=== PATIENT | female | born 1935 | race Caucasian/White ===

== ENCOUNTER 2016-11-30 20:19 | Observation (INO) | payer MEDICARE, MEDICAID ==
[2016-11-30] MEDS ORDERED: oxyCODONE/Acetamin 5/325 MG* TAB PO ONE (21:06)
[2016-11-30 22:05] LABS: Hematocrit 41 % (35-47); Hemoglobin 13.8 g/dl (12.0-16.0); Mean Corpuscular HGB Conc 34 g/dl (31-36); Mean Corpuscular Hemoglobin 29 pg (27-31); Mean Corpuscular Volume 86 fL (80-97); Mean Platelet Volume 10 um3 (7.4-10.4); Red Blood Count 4.78 10^6/ul (4.0-5.4); Red Cell Distribution Width 14 % (10.5-15); White Blood Count 9.8 10^3/ul (3.5-10.8)
[2016-11-30 22:21] LABS: Albumin 4.2 g/dL (3.2-5.2); BUN/Creatinine Ratio 15.9 (8-20); EGFR African American 63.1 (>60); EGFR Non-African American 49.1 (>60); Globulin 3.2 g/dL (2-4); Potassium 3.5 mmol/L (3.5-5.0); Total Bilirubin 0.4 mg/dL (0.2-1.0); Total Protein 7.4 g/dL (6.4-8.9)
[2016-11-30] MEDS ORDERED: Clindamycin 600 MG IVPREMIX(* 600 MG/50 ML SDV IV ONE (22:28)
[2016-11-30] MEDS ORDERED: NS 0.9% 250 ML* 250 ML IV ONE (22:28)
[2016-11-30] MEDS ORDERED: Morphine INJ* 2 MG/ML 1 ML CARPUJECT IV ONE (22:59)
--- NOTE | 2016-11-30 22:59 | HP ---
H&P (Free Text) History and Physical: PCP: Mark Shoemaker MD Date/Time of Evaluation: 11/30/2016 2310 CC: generalized weakness HPI: Mrs Gonzalez is an 81YO female reporting onset of a red 'bump' on her chin 2- 3 weeks ago which gradually enlarged becoming increasingly tender and erythematous with onset of F/C and sweats. She was seen by Felicia Bauer MD surgery Wednesday who lanced the R mental area, obtained a wound CX, and prescribed an ABX which she cannot recall. She has taken it as prescribed, but the area has not improved significantly and she has developed increasing fatigue and generalized weakness for which she presents. She also reports pain "in the jaw bone" with swallowing leading to poor PO intake. There is no pain in the neck proper, chest , abdomen, or other area. Bowels and bladder are normal. PMedHx HTN HLD hypothyroidism Allergies No Known Allergies Allergy (Verified 11/30/16 20:33) Ambulatory Orders Levothyroxine TAB* [Synthroid TAB*] 88 mcg PO 0800 11/30/16 Pravastatin Sodium [Pravachol] 20 mg PO DAILY 11/30/16 Triamterene/HCTZ 37.5-25 MG* [Dyazide CAP*] 1 cap PO DAILY 11/30/16 PSurgHx hysterectomy SocHx: no tobacco, alcohol, or recreational drugs; , lives alone; DNR/ trial of intubation code status FamHx: reviewed, non-contributory ROS: as above, otherwise reviewed and all were negative Constitutional: NAD, normally developed, well-nourished elderly white female vitals: Vital Signs Temp 36.8 C 12/01/16 01:58 Pulse 78 12/01/16 01:58 Resp 16 12/01/16 01:58 BP 149/71 12/01/16 01:58 Pulse Ox 95 12/01/16 01:58 Intake & Output 11/30/16 11/30/16 12/01/16 11:59 23:59 11:59 Intake Total 50 Balance 50 Weight 135 lb Intake: IV Fluids 50 HEENM: mental area with ~3cm erythematous, tender, warm indurated area with R sided I&D site without drainage; sclera/conjunctiva: non-icteric/clear; blephara : normal; hearing: clinically intact; oropharynx: clear, mucosa moist Neck: soft tissue: non-tender, no nuchal rigidity; thyroid: normal; no tracheal tenderness or crepitus Pulmonary: clear to auscultation bilaterally, good aeration, no accessory muscle use CV: RR/RR, normal S1S2, no carotid bruit, no jugular venous distention, 2+ B DP/ PT, no edema Abdominal: soft, non-distended, non-tender, no rebound/guarding/rigidity, normoactive bowel sounds, no hepatosplenomegaly or masses, no costovertebral angle tenderness Musculoskeletal: general: grossly intact; gait: stable Integumental: as above, otherwise normal appearance and texture Psychiatric orientation: AA&O to PPS affect: calm mood: cooperative eye contact: good content: reliable responses: slowed 2nd pain in jaw with speaking insight: good Testing: Lab Results 11/30/16 11/30/16 Range/Units 21:45 21:45 WBC 9.8 (3.5-10.8) 10^3/ul RBC 4.78 (4.0-5.4) 10^6/ul Hgb 13.8 (12.0-16.0) g/dl Hct 41 (35-47) % MCV 86 (80-97) fL MCH 29 (27-31) pg MCHC 34 (31-36) g/dl RDW 14 (10.5-15) % Plt Count 182 (150-450) 10^3/ul MPV 10 (7.4-10.4) um3 Neut % (Auto) 77.6 (38-83) % Lymph % (Auto) 9.8 L (25-47) % Newberry % (Auto) 12.3 H (1-9) % Eos % (Auto) 0.1 (0-6) % Baso % (Auto) 0.2 (0-2) % Absolute Neuts (auto) 7.6 (1.5-7.7) 10^3/ul Absolute Lymphs (auto) 1.0 (1.0-4.8) 10^3/ul Absolute Monos (auto) 1.2 H (0-0.8) 10^3/ul Absolute Eos (auto) 0 (0-0.6) 10^3/ul Absolute Basos (auto) 0 (0-0.2) 10^3/ul Absolute Nucleated RBC 0 10^3/ul Nucleated RBC % 0 Sodium 119 L* (133-145) mmol/L Potassium 3.5 (3.5-5.0) mmol/L Chloride 85 L (101-111) mmol/L Carbon Dioxide 25 (22-32) mmol/L Anion Gap 9 (2-11) mmol/L BUN 17 (6-24) mg/dL Creatinine 1.07 H (0.51-0.95) mg/dL Est GFR ( Amer) 63.1 (>60) Est GFR (Non-Af Amer) 49.1 (>60) BUN/Creatinine Ratio 15.9 (8-20) Glucose 114 H (70-100) mg/dL Calcium 11.0 H (8.6-10.3) mg/dL Total Bilirubin 0.40 (0.2-1.0) mg/dL AST 18 (13-39) U/L ALT 10 (7-52) U/L Alkaline Phosphatase 67 (34-104) U/L Total Protein 7.4 (6.4-8.9) g/dL Albumin 4.2 (3.2-5.2) g/dL Globulin 3.2 (2-4) g/dL Albumin/Globulin Ratio 1.3 (1-3) Impression: 81F presenting with mental cellulitis found to have hypoNatremia DIAGNOSIS & PLAN Primary hypoNatremia : suspect dehydration & HCTZ effect in setting of poor PO intake and ongoing thiazide use : D/C triamtereneHCTZ : IV normal saline : trend mental cellulitis : wound CX from 11/27/2016 no growth, final : PO sulfamethoxazole/trimethoprim DS BID : PO amoxicillin 875mg BID : monitor Secondary HTN : D/C triamterene HCTZ : add lisinopril 5mg PO daily : monitor HLD : continue pravastatin hypothyroidism : continue levothyroxine Admission Rational: observation for hypoNatremia DVTp: heparin SQ Code Status: DNR/trial of intubation HCP: daughter
[2016-11-30] MEDS ORDERED: Ondansetron INJ* 2 MG/ML VIAL IV ONE (23:00)
[2016-11-30] MEDS ORDERED: NS 0.9% 1000 ML* 1,000 ML IV SCH (23:15)
--- NOTE | 2016-12-01 00:44 | ED ---
Sam Huang Adam, scribed for Rudy Allen on 11/30/16 at 2102 . Skin Complaint - HPI Summary HPI Summary: Pt is an 81 year old female presenting with swelling on her chin that set on 2 weeks ago. 3 days ago she started abx and 2 days ago her PCP lanced the chin. She came to the ED tonight because the swelling has increased since she saw her PCP and she also c/o pain in the chin. Pt also reports insomnia and intermittent fever. She denies any CP or SOB. Negative Hx of DM. No tobacco/ alcohol use. - History of Current Complaint Chief Complaint: EDRashSkinAbscess Time Seen by Provider: 11/30/16 20:54 Stated Complaint: MOUTH PAIN Hx Obtained From: Patient Onset/Duration: Started Weeks Ago, Atraumatic, Still Present, Worse Since - Last 2 days Timing: Constant Onset Severity: Mild Current Severity: Moderate Pain Intensity: 10 Pain Scale Used: 0-10 Numeric Skin Location: Face - Chin Character: Swelling, Pain, Redness Aggravating Symptom(s): Nothing Alleviating Symptom(s): Nothing Associated Signs & Symptoms: Fever - Allergy/Home Medications Allergies/Adverse Reactions: Allergies Allergy/AdvReac Type Severity Reaction Status Date / Time No Known Allergies Allergy Verified 11/30/16 20:33 PMH/Surg Hx/FS Hx/Imm Hx Infectious Disease History: No Infectious Disease History: Denies: Traveled Outside the US in Last 30 Days - Family History Known Family History: Positive: None - Reviewed and noncontributory - Social History Occupation: Unemployed Lives: Alone Alcohol Use: None Hx Substance Use: No Substance Use Type: Reports: None Hx Tobacco Use: No Smoking Status (MU): Never Smoked Tobacco Review of Systems Positive: Fever, Fatigue - Insomnia Positive: Myalgia - Chin, Edema - Chin Positive: Other - Redness over chin All Other Systems Reviewed And Are Negative: Yes Physical Exam Triage Information Reviewed: Yes Vital Signs On Initial Exam: Initial Vitals Temp Pulse Resp BP Pulse Ox 97.4 F 98 18 154/75 99 11/30/16 20:31 11/30/16 20:31 11/30/16 20:31 11/30/16 20:31 11/30/16 20:31 Vital Signs Reviewed: Yes Appearance: Positive: Well-Appearing, No Pain Distress Skin: Positive: Warm, Skin Color Reflects Adequate Perfusion, Dry Head/Face: Positive: Other - Swelling and redness over chin. No fluctuance, mild tenderness. Incision wound present on the right aspect of the chin. No discharge. Eyes: Positive: EOMI, ALMA ENT: Positive: Normal ENT inspection Neck: Positive: Supple, Nontender Respiratory/Lung Sounds: Positive: Clear to Auscultation, Breath Sounds Present Cardiovascular: Positive: RRR, Pulses are Symmetrical in both Upper and Lower Extremities Abdomen Description: Positive: Nontender, Soft Bowel Sounds: Positive: Present Musculoskeletal: Positive: Normal, Strength/ROM Intact Neurological: Positive: Normal, Sensory/Motor Intact, Alert, Oriented to Person Place, Time Diagnostics - Vital Signs Vital Signs Temp Pulse Resp BP Pulse Ox 11/30/16 20:31 97.4 F 98 18 154/75 99 - Laboratory Result Diagrams: 11/30/16 21:45 11/30/16 21:45 Lab Statement: Any lab studies that have been ordered have been reviewed, and results considered in the medical decision making process. - Additional Comments Diagnostic Additional Comments: Sodium - 119 Course/Dx - Diagnoses Provider Diagnoses: Cellulitis of the chin, Hyponatremia - Physician Notifications Discussed Care Of Patient With: Dr. Allen at 22:40. He accepts admission of the patient. Discharge - Discharge Plan Condition: Stable Disposition: ADMITTED TO [facility] Referrals: Stephanie Shoemaker MD [Primary Care Provider] - The documentation as recorded by the Sam rees Adam accurately reflects the service I personally performed and the decisions made by me, Rudy Allen.
[2016-12-01] MEDS ORDERED: Acetaminophen TAB* 325 MG PO PRN (03:57)
[2016-12-01] MEDS ORDERED: Morphine INJ* 2 MG/ML 1 ML CARPUJECT IV PRN (04:08)
[2016-12-01] MEDS ORDERED: NS 0.9% 1000 ML* 1,000 ML IV SCH (04:15)
[2016-12-01] MEDS: Levothyroxine TAB* 88 MCG TAB PO SCH (05:54)
[2016-12-01] MEDS ORDERED: Lidocaine 2% VISCOUS* 15 ML UDC SWISH SWAL PRN (05:56)
[2016-12-01] MEDS: Ondansetron INJ* 2 MG/ML VIAL IV PRN ×2 (06:20→12:42)
[2016-12-01 06:58] LABS: BUN/Creatinine Ratio 15.7 (8-20); Calcium 10.1 mg/dL (8.6-10.3); EGFR African American 78.1 (>60); EGFR Non-African American 60.7 (>60); Potassium 3.7 mmol/L (3.5-5.0)
[2016-12-01] MEDS: NS 0.9% 1000 ML* 1,000 ML IV SCH ×2 (09:35→20:18)
[2016-12-01] MEDS: Atorvastatin* 10 MG TAB PO SCH (09:37)
[2016-12-01] MEDS: Sulfamethox/Trimethoprim DS 800/160* TAB PO SCH ×2 (09:37→20:22)
[2016-12-01] MEDS: Pantoprazole IV* 40 MG IV SCH (09:37)
[2016-12-01] MEDS: Lisinopril TAB* 5 MG PO SCH (09:37)
[2016-12-01] MEDS: Amoxicillin PO (*) 875 MG TAB PO SCH ×2 (09:37→20:21)
--- NOTE | 2016-12-01 12:58 | PN ---
Subjective Date of Service: 12/01/16 Interval History: Seen with daughter at bedside Feels energy level improved No pain over chin but notes pain in b/l TMJs Objective Active Medications: Acetaminophen (Tylenol Tab*) 650 mg PO Q6H PRN PRN Reason: FEVER/PAIN Amoxicillin (Amoxicillin (*)) 875 mg PO BID [facility] Last Admin: 12/01/16 09:37 Dose: 875 mg Atorvastatin Calcium (Lipitor*) 5 mg PO DAILY [facility] PRN Reason: Protocol Last Admin: 12/01/16 09:37 Dose: 5 mg Sodium Chloride (Ns 0.9% 1000 Ml*) 1,000 mls @ 100 mls/hr IV PER RATE [facility] Last Admin: 12/01/16 09:35 Dose: 100 mls/hr Levothyroxine Sodium (Synthroid Tab*) 88 mcg PO 0600 [facility] Last Admin: 12/01/16 05:54 Dose: 88 mcg Lidocaine (Xylocaine 2% Viscous*) 15 ml SWISH SWAL TID PRN PRN Reason: SORE THROAT Last Admin: 12/01/16 09:38 Dose: 15 ml Lisinopril (Prinivil Tab*) 5 mg PO DAILY [facility] Last Admin: 12/01/16 09:37 Dose: 5 mg Morphine Sulfate (Morphine Inj (Syringe)*) 2 mg IV Q4H PRN PRN Reason: PAIN - MILD Last Admin: 12/01/16 05:54 Dose: 2 mg Ondansetron HCl (Zofran Inj*) 4 mg IV Q6H PRN PRN Reason: NAUSEA Last Admin: 12/01/16 12:42 Dose: 4 mg Pantoprazole Sodium (Protonix Iv*) 40 mg IV DAILY [facility] Last Admin: 12/01/16 09:37 Dose: 40 mg Trimethoprim/Sulfamethoxazole (Bactrim Ds 800/160 Tab*) 1 tab PO BID [facility] Last Admin: 12/01/16 09:37 Dose: 1 tab Vital Signs 12/01/16 12/01/16 12/01/16 05:45 05:54 06:34 Temperature 98.4 F Pulse Rate 80 Respiratory 16 14 16 Rate Blood Pressure 162/70 (mmHg) O2 Sat by Pulse 95 Oximetry 12/01/16 12/01/16 12/01/16 06:54 07:35 11:52 Temperature 98.1 F 98.3 F Pulse Rate 76 74 Respiratory 16 18 18 Rate Blood Pressure 140/65 141/58 (mmHg) O2 Sat by Pulse 95 97 Oximetry Oxygen Devices in Use Now: None Appearance: NAD Eyes: No Scleral Icterus, PERRLA Ears/Nose/Mouth/Throat: NL Teeth, Lips, Gums, Clear Oropharnyx, Mucous Membranes Moist, - - pain in TMJ b/l Neck: NL Appearance and Movements; NL JVP, Trachea Midline Respiratory: Symmetrical Chest Expansion and Respiratory Effort, Clear to Auscultation Cardiovascular: RRR Abdominal: NL Sounds; No Tenderness; No Distention, No Hepatosplenomegaly Lymphatic: No Cervical Adenopathy Extremities: No Edema, No Clubbing, Cyanosis Skin: - - mild erythema over chin with area of I&D c/d/i Neurological: Alert and Oriented x 3 Result Diagrams: 11/30/16 21:45 12/01/16 06:00 Assess/Plan/Problems-Billing Assessment: 81 yo F admitted with fatigue in setting of cellulitis and hyponatremia - Patient Problems (1) Hyponatremia Comment: c/w normal saline 100cc/hr hold aldactone and HCTZ (2) Cellulitis Comment: c/w bactrim and amox (3) Hypertension Comment: lisinopril (4) DVT prophylaxis Comment: HSQ
[2016-12-01] MEDS: Heparin VIAL(*) 5000 UNITS/ML VIAL (FIVE THOUSAND) SUBCUT SCH ×2 (15:31→20:23)
[2016-12-02 05:17] LABS: Hematocrit 34 % (35-47); Hemoglobin 11.3 g/dl (12.0-16.0); Mean Corpuscular HGB Conc 34 g/dl (31-36); Mean Corpuscular Hemoglobin 29 pg (27-31); Mean Corpuscular Volume 86 fL (80-97); Mean Platelet Volume 10 um3 (7.4-10.4); Red Blood Count 3.92 10^6/ul (4.0-5.4); Red Cell Distribution Width 14 % (10.5-15); White Blood Count 7.5 10^3/ul (3.5-10.8)
[2016-12-02] MEDS: Levothyroxine TAB* 88 MCG TAB PO SCH (05:21)
[2016-12-02] MEDS: Heparin VIAL(*) 5000 UNITS/ML VIAL (FIVE THOUSAND) SUBCUT SCH ×2 (05:23→14:01)
[2016-12-02 05:31] LABS: BUN/Creatinine Ratio 13.5 (8-20); Calcium 9.4 mg/dL (8.6-10.3); EGFR African American 96.6 (>60); EGFR Non-African American 75.1 (>60); Potassium 3.4 mmol/L (3.5-5.0)
[2016-12-02] MEDS: NS 0.9% 1000 ML* 1,000 ML IV SCH (07:20)
[2016-12-02] MEDS: Amoxicillin PO (*) 875 MG TAB PO SCH (08:29)
[2016-12-02] MEDS: Lisinopril TAB* 5 MG PO SCH (08:30)
[2016-12-02] MEDS: Pantoprazole IV* 40 MG IV SCH (08:30)
[2016-12-02] MEDS: Sulfamethox/Trimethoprim DS 800/160* TAB PO SCH (08:30)
[2016-12-02] MEDS: Atorvastatin* 10 MG TAB PO SCH (08:30)
[2016-12-02] MEDS ORDERED: Iohexol 300* (CONTRAST) 10 ML SDV IV ONE (10:51)
--- NOTE | 2016-12-02 12:17 | RAD ---
HISTORY: Squamous cell carcinoma COMPARISONS: None TECHNIQUE: Multiple contiguous axial CT scans were obtained of the chest, abdomen, and pelvis after the administration of intravenous contrast. Coronal and sagittal multiplanar reformations are submitted for review.. FINDINGS: CHEST NECK AND THYROID: The lower neck and thyroid are unremarkable. CHEST WALL: There is no lower cervical, axillary, or supraclavicular lymphadenopathy by size criteria. There are subcentimeter short axis axillary lymph nodes bilaterally. HEART AND PERICARDIUM: The heart is unremarkable. AORTA AND PULMONARY VASCULATURE: The aorta and pulmonary vasculature are normal. MEDIASTINUM: There is no mediastinal lymphadenopathy by size criteria. There are calcified mediastinal lymph nodes. HENRY: There is no hilar lymphadenopathy by size criteria. AIRWAY AND ESOPHAGUS: The airway is unremarkable, without endobronchial filling defect. The esophagus is grossly normal. LUNG PARENCHYMA: There is a calcified granuloma of the left upper lobe. There is a 0.4 cm nodule of the right upper lobe on axial image 24. PLEURA: No pleural abnormalities are noted. BONES AND SOFT TISSUES: There is diffuse osteopenia. Mild degenerative changes are noted ABDOMEN/PELVIS: LIVER: The liver is normal in shape, size, contour, and attenuation. BILE DUCTS: There is ectasia of the common duct. There is no intrahepatic biliary dilatation. GALLBLADDER: The gallbladder is normal, without pericholecystic inflammatory change. PANCREAS: The pancreas is normal, without mass or ductal dilatation. SPLEEN: Calcified splenic granulomas are noted. UPPER GI TRACT: Evaluation of the gastrointestinal tract is limited by incomplete gastric distention. The upper GI tract is unremarkable. SMALL BOWEL \T\ MESENTERY: The small bowel is normal in contour, course, and caliber. There is no obstruction or dilatation. COLON: There are multiple diverticula of the distal colon. There is no pericolonic inflammatory change. ADRENALS: Normal bilaterally. KIDNEYS: The kidneys are normal in shape, size, contour, and axis. There is no hydronephrosis or nephrolithiasis. BLADDER: The bladder is smooth in contour. PELVIC ORGANS: The pelvic organs are not visualized. AORTA: There is calcific atherosclerotic disease of the abdominal aorta and its branches, without aneurysmal dilatation IVC: Unremarkable LYMPH NODES: There is no lymphadenopathy by size criteria. ABDOMINAL WALL: There is no evidence for abdominal wall hernia. BONES: Degenerative changes are noted of the spine. There is grade 1 anterolisthesis of L4 on L5 OTHER: None IMPRESSION: 1. 0.4 CM NODULE OF THE RIGHT UPPER LOBE. GIVEN THE HISTORY OF MALIGNANCY, METASTATIC DISEASE IS WITHIN THE DIFFERENTIAL. RECOMMEND ATTENTION ON FOLLOW-UP IMAGING. 2. DIVERTICULOSIS. 3. ATHEROSCLEROSIS. 4. EVIDENCE OF EXPOSURE TO GRANULOMATOUS DISEASE.
--- NOTE | 2016-12-02 12:42 | RAD ---
HISTORY: New diagnosis of squamous cell carcinoma COMPARISONS: None TECHNIQUE: Multiple contiguous axial CT scans were obtained of the head with and without intravenous contrast. FINDINGS: HEMORRHAGE/INFARCT: There is no hemorrhage or acute infarct. MASSES/SHIFT: There is no mass or shift. EXTRA-AXIAL SPACES: There are no extra-axial fluid collections. SULCI AND VENTRICLES: The sulci and ventricles are normal in size and position for the patient's stated age. CEREBRUM: There are no focal parenchymal abnormalities. BRAINSTEM: There are no focal parenchymal abnormalities. CEREBELLUM: There are no focal parenchymal abnormalities. VESSELS: The vessels are grossly normal. PARANASAL SINUSES: The paranasal sinuses are clear. ORBITS: The orbits are unremarkable. BONES AND SOFT TISSUE: No bone or soft tissue abnormalities are noted. OTHER: There is no abnormal enhancement IMPRESSION: NO ACUTE INTRACRANIAL PATHOLOGY. NO ABNORMAL ENHANCEMENT.
[2016-12-02 12:56] VITALS: BP 135/57
--- NOTE | 2016-12-02 19:40 | CONS ---
CONSULTATION REPORT: DATE OF CONSULTATION: 12/02/16 I was at [facility] and they presented Alyssia Gonzalez who had a mass on her chin that was initially thought to be an abscess Two biopsies were taken and it turned out to be squamous cell carcinoma. I examined her and she has got a firm mass involving the anterior symphysis of her mandible. There was no intraoral lesion but it does appear to be wrapping around the mandible and invading skin. I believe that the primary is squamous cell carcinoma, for some reason arising from the mandible, possibly from a tooth root. She will require mandibulectomy and will be referring her for that to [facility]. I will see her in the office after she is discharged. [id number]/[facility] #: [id number] ALISON
--- NOTE | 2016-12-03 01:31 | DS ---
DISCHARGE SUMMARY: DATE OF ADMISSION: 11/30/16 DATE OF DISCHARGE: 12/02/16 PRIMARY CARE PROVIDER: Dr. Shoemaker. ONCOLOGIST: Dr. Maravilla. ENT DOCTOR: Dr. Figueroa. 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 2. Hyponatremia. SECONDARY DIAGNOSES: 1. A 0.4 cm lung nodule. 2. Hypertension. 3. Hyperlipidemia. 4. Hypothyroidism. MEDICATIONS ON DISCHARGE: Include: 1. Pravastatin 20 mg daily. 2. Levothyroxine 88 mcg daily. 3. Lisinopril 5 mg daily. Please note the discontinuation of hydrochlorothiazide. IMAGING PERFORMED DURING HOSPITAL STAY: CT of abdomen and pelvis, impression: A 0.4 cm nodule of the right upper lobe. Given the history of malignancy, metastatic disease within differential. Diverticulosis, atherosclerosis, evidence of exposure to granulomatous disease. Brain CT, impression: No acute endocranial pathology. No abnormal enhancement. PERTINENT LABORATORY DATA: Sodium on presentation 119 and on discharge 126. HISTORY OF PRESENT ILLNESS AND HOSPITAL COURSE: This is a louise 81-year-old female who developed "red bump" on her chin 2 to 3 weeks ago that became gradually enlarged. She presented to Dr. Bauer where he performed an I and D without return of pus. Given its peculiar appearance, he also took a small biopsy and sent for pathology. The patient presented to the hospital feeling more fatigued. She was found with hyponatremia and continued abnormality of skin over chin. She was being treated for a cellulitis, which we continued in the hospital; however, pathology from biopsy taken by Dr. Bauer returned while she was here, positive for well- differentiated invasive squamous cell carcinoma. Case presented at [facility] on the day of discharge. She was seen by Dr. Figueroa in the hospital who will follow her and arrange a followup this coming week. He indicates that he would likely refer her to [place] for further care. She also received a CT of head, chest, abdomen and pelvis after discussion with Oncology, which was ____notable__ for a 0.4 cm nodule. It is thought that this may be unrelated; however, certainly can represent primary or metastatic disease in the setting of known invasive squamous cell carcinoma of the chin. She will be discharged with followup for Dr. Shoemaker, and Dr. Figueroa is arranging followup with his office on Wednesday or Wednesday. She is left with Dr. Maravilla's information to follow up after surgery , likely to be at [place]. Her sodium improved with the administration of normal saline. The hydrochlorothiazide was discontinued. It was thought that she had hypovolemic hyponatremia. At followup please; 1. Ensure the patient follows with Dr. Figueroa as indicated above. 2. Please check blood pressure and change in medication. Hydrochlorothiazide was discontinued. Lisinopril was continued. 3. Consider rechecking BMP in future for continued sodium resolution. 4. No other specific labs or vital signs that need followup. Reasons to return to the hospital including, but are not limited to recurrent or worsening symptoms, chest pain, shortness of breath, nausea, vomiting, headaches, changes in vision, bleeding from any source, diarrhea, fevers, chills , night sweats, inability to obtain or tolerate medications were discussed with the patient and her daughter. They acknowledged understanding. TIME SPENT: Greater than 45 minutes was spent on discharge of this patient with greater than half the time spent [id number] with the patient. CC: Dr. Shoemaker; Dr. Maravilla; Dr. Figueroa * [id number]/[facility] #: [id number] [facility]
== END 2016-12-02 14:49 | disposition home or self-care (01) ==
LOC: ED 20:19 → MEDTELE 12-01 03:54
PROVIDERS: ADMIT Hospitalist; ATTEND Internal Medicine
DX: C44.329 Squamous cell carcinoma of skin of other parts of face (principal); R91.1 Solitary pulmonary nodule; I10 Essential (primary) hypertension; E78.5 Hyperlipidemia, unspecified; E03.9 Hypothyroidism, unspecified; E87.1 Hypo-osmolality and hyponatremia
CPT/HCPCS: 36415; 70470; 71260; 74177; 80048; 80053; 85025; 87040; 96365; 96375; 99284; A9270-GY; G0378; J1644; J2270; J2405; Q9967

== ENCOUNTER 2016-12-06 04:01 | Emergency (ER) | payer MEDICARE, MEDICAID ==
[2016-12-06 04:10] VITALS: BP 186/86
[2016-12-06] MEDS ORDERED: Morphine INJ* 4 MG/ML 1 ML CARPUJECT SUBCUT ONE (04:23)
--- NOTE | 2016-12-06 04:37 | ED ---
Nithin Huang Janilya, scribed for Gregorio Jimenez MD on 12/06/16 at 0427 . Skin Complaint - HPI Summary HPI Summary: An 81 y/o female came in to [facility] c/o a sudden onset of constant chin pain that awoke her last night. Pt says she's had the abscess and the swelling on her chin "for a while". however, the reason she came to the ED today was because it woke her up from her sleep. Pt had bx and was recently dx with squamous cell ca of chin, to be followed in [place], pt has not made appointment for f/u yet. It usually does not. She takes Tylenol for the pain, which pt reports at times effective, and at other times, unhelpful. - History of Current Complaint Chief Complaint: EDHeadache Time Seen by Provider: 12/06/16 04:21 Stated Complaint: JAW PAIN Hx Obtained From: Patient Onset/Duration: Started Days Ago, Atraumatic, Still Present Timing: Constant Onset Severity: Moderate Current Severity: Moderate Pain Intensity: 8 Pain Scale Used: 0-10 Numeric Skin Location: Other: - Chin Aggravating Symptom(s): Nothing Alleviating Symptom(s): OTC Meds Associated Signs & Symptoms: Negative - Additional Pertinent History Primary Care Physician: [id number] - Allergy/Home Medications Allergies/Adverse Reactions: Allergies Allergy/AdvReac Type Severity Reaction Status Date / Time No Known Allergies Allergy Verified 11/30/16 20:33 PMH/Surg Hx/FS Hx/Imm Hx Previously Healthy: Yes Sensory History: Reports: Hx Contacts or Glasses Opthamlomology History: Reports: Hx Contacts or Glasses - Surgical History Surgery Procedure, Year, and Place: hysterectomy - in the 70s Hx Anesthesia Reactions: No Infectious Disease History: No Infectious Disease History: Denies: Traveled Outside the [place] in Last 30 Days - Family History Known Family History: Positive: None - Reviewed and noncontributory - Social History Occupation: Retired Alcohol Use: None Hx Substance Use: No Substance Use Type: Reports: None Hx Tobacco Use: No Smoking Status (MU): Never Smoked Tobacco Review of Systems Negative: Fever Skin: Other - abscess, erythema, swelling, and pain of chin All Other Systems Reviewed And Are Negative: Yes Physical Exam Triage Information Reviewed: Yes Vital Signs On Initial Exam: Initial Vitals Temp Pulse Resp BP Pulse Ox 97.9 F 85 18 186/86 95 12/06/16 04:03 12/06/16 04:03 12/06/16 04:03 12/06/16 04:03 12/06/16 04:03 Vital Signs Reviewed: Yes Appearance: Positive: Well-Appearing, Pain Distress - mild discomfort Skin: Positive: Warm Head/Face: Positive: Other - mild erythema, swollen, tender chin, no fluctuance ENT: Positive: Hearing grossly normal Neck: Positive: Supple Respiratory/Lung Sounds: Positive: Breath Sounds Present Musculoskeletal: Positive: Strength/ROM Intact Neurological: Positive: Normal Gait Diagnostics - Vital Signs Vital Signs Temp Pulse Resp BP Pulse Ox 12/06/16 04:03 97.9 F 85 18 186/86 95 - Laboratory Lab Statement: Any lab studies that have been ordered have been reviewed, and results considered in the medical decision making process. Re-Evaluation - Re-Evaluation First Eval Re-Evaluation Time: 05:00 Change: Improved - explained to pt need to f/u for ca, to call pcp for further rx for pain, advised to take ibuprofen for same Course/Dx - Diagnoses Provider Diagnoses: Jaw pain Discharge - Discharge Plan Condition: Improved Disposition: HOME Referrals: Stephanie Shoemaker MD [Primary Care Provider] - Additional Instructions: Follow up with your primary care provider. The documentation as recorded by the Nithin rees Janilya accurately reflects the service I personally performed and the decisions made by me, Gregorio Jimenez MD.
[2016-12-06] MEDS ORDERED: traMADol TAB* 50 MG PO ONE ×2 (05:01→06:00)
== END 2016-12-06 06:43 | disposition home or self-care (01) ==
LOC: ED 04:01
DX: R68.84 Jaw pain (principal)
CPT/HCPCS: 96374; 99282; A9270-GY; J2270

== ENCOUNTER 2017-01-20 18:48 | Emergency (ER) | payer MEDICARE, MEDICAID ==
[2017-01-20] MEDS ORDERED: NS 0.9% 1000 ML* 1,000 ML IV SCH (19:45)
--- NOTE | 2017-01-20 20:07 | RAD ---
INDICATION: Chills. COMPARISON: Comparison is made with a prior chest x-ray study from November 03, 2006. TECHNIQUE: A portable view of the chest was obtained. FINDINGS: Cardiac and mediastinal contours appear to be within normal limits. There is a nasogastric tube which demonstrates normal course. The catheter tip projects below the left hemidiaphragm off the film. There is an infiltrate at the right lung base and a small right pleural effusion. The left lung appears clear. IMPRESSION: RIGHT BASILAR INFILTRATE AND SMALL PLEURAL EFFUSION.
[2017-01-20 20:19] LABS: Hematocrit 29 % (35-47); Hemoglobin 9.6 g/dl (12.0-16.0); Mean Corpuscular HGB Conc 33 g/dl (31-36); Mean Corpuscular Hemoglobin 28 pg (27-31); Mean Corpuscular Volume 86 fL (80-97); Mean Platelet Volume 9 um3 (7.4-10.4); Red Blood Count 3.41 10^6/ul (4.0-5.4); Red Cell Distribution Width 15 % (10.5-15); White Blood Count 17.2 10^3/ul (3.5-10.8)
[2017-01-20 20:36] LABS: Albumin 3.1 g/dL (3.2-5.2); BUN/Creatinine Ratio 36.4 (8-20); C Reactive Protein 32.99 mg/L (< 5.00); EGFR African American 136.1 (>60); EGFR Non-African American 105.8 (>60); Globulin 3.5 g/dL (2-4); Potassium 3.3 mmol/L (3.5-5.0); Total Bilirubin 0.5 mg/dL (0.2-1.0); Total Protein 6.6 g/dL (6.4-8.9)
[2017-01-20] MEDS ORDERED: Iohexol 300* (CONTRAST) 10 ML SDV IV ONE (20:41)
[2017-01-20] MEDS ORDERED: Levofloxacin 750 MG IVPREMIX(* 750 MG/150 ML BAG IVPB ONE (21:07)
[2017-01-20] MEDS ORDERED: cefTRIAXone(*) 1 GM in NS 0.9% 50 ML* 50 ML IVPB ONE (21:07)
--- NOTE | 2017-01-20 21:26 | RAD ---
INDICATION: Status post mandible surgery January 06, 2017, drainage at the surgical site and chills. COMPARISON: Comparison is made with a prior PET/CT study from December 31, 2016. TECHNIQUE: A CT scan of the neck was performed with intravenous contrast following intravenous injection of 50 ml of Omnipaque 300 nonionic contrast. Contiguous axial sections were obtained from the skull base through the lung apices. Images were reconstructed in the coronal and sagittal planes. FINDINGS: The patient is status post resection of a mass in the mandibular symphysis. There is bone graft material present replacing the horizontal rami and mandibular symphysis transfixed with multiple surgical plates and screws. No osseous fusion is present. There is diffuse soft tissue swelling inferior to the surgical site extending into the anterior neck. There is a fluid collection present along the inferior aspect of the surgical site in the midline which extends laterally toward the right side. This measures approximately 8.0 x 2.4 x 1.4 cm in size. There are also small bubbles of air within the collection. No wall enhancement is noted. The airway appears patent. The epiglottis and area epiglottic folds appear within normal limits. The retropharyngeal soft tissues appear to be within normal limits. There is a stoma present connecting to the anterior aspect of the trachea at the thoracic inlet. No significant enlarged nodes are seen. The parotid glands appear within normal limits. The submandibular glands are not well-defined. The thyroid gland appears mildly prominent with adjacent postsurgical changes and otherwise unremarkable. The lung apices appear clear. There is a right pleural effusion which is partially visualized on this exam. The visualized portion of the paranasal sinuses and mastoid air cells appear clear. IMPRESSION: 1. POST SURGICAL CHANGES IN THE MANDIBLE DESCRIBED. INFERIOR TO THE SURGICAL SITE THERE IS A RELATIVELY PROMINENT AIR-FLUID COLLECTION MOST CONSISTENT WITH A POSTOPERATIVE SEROMA OR AN ABSCESS. 2. RIGHT PLEURAL EFFUSION, RECOMMEND CHEST X-RAY CORRELATION.
[2017-01-20 22:38] LABS: Urine Bilirubin Negative (Negative); Urine Glucose Negative (Negative); Urine Nitrite Negative (Negative)
[2017-01-20] MEDS ORDERED: Ondansetron INJ* 2 MG/ML VIAL IV ONE (23:35)
[2017-01-20] MEDS ORDERED: Morphine INJ* 4 MG/ML 1 ML CARPUJECT IV ONE (23:35)
--- NOTE | 2017-01-20 23:46 | ED ---
jaylan Huang Timothy, scribed for Al Zavaleta MD on 01/20/17 at 1934 . 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 She had surgery on 01/06/17 and was D/C'd 01/15/17 by [facility]. Pt is currently c/o fatigue and weakness, tremors, and 7 /10 right jaw pain and left leg pain at the graft sites. She is also c/o pain in her left leg where the bone was taken for her jaw replacement. She denies dysuria. Per family in room, Pt went to the bathroom and came out and was shaking and felt hot. Her dressings are changed daily. The swelling on the right side of her face is baseline S/P surgery. Per triage, there is odor with drainage at the jaw. Her MHx also includes HTN. Dr. Oli Tierney was her surgeon. - History of Current Complaint Time Seen by Provider: 01/20/17 19:29 Hx Obtained From: Patient, Family/[employer] Onset/Duration: Started Days Ago, Still Present Timing: Constant Temperature: 98.9 F Initial Severity: Moderate Current Severity: Moderate Pain Intensity: 7 Pain Scale Used: 0-10 Numeric Aggravating Factors: Nothing Alleviating Factors: Nothing Associated Signs and Symptoms: Chills, Other: - tremors, jaw pain, left leg pain - Additional Pertinent History Primary Care Physician: [id number] - Allergy/Home Medications Allergies/Adverse Reactions: Allergies Allergy/AdvReac Type Severity Reaction Status Date / Time No Known Allergies Allergy Verified 12/22/16 10:00 PMH/Surg Hx/FS Hx/Imm Hx Endocrine/Hematology History: Denies: Hx Diabetes Cardiovascular History: Denies: Hx Hypertension, Hx Pacemaker/ICD History: Denies: Hx Renal Disease Sensory History: Reports: Hx Contacts or Glasses Denies: Hx Hearing Aid Opthamlomology History: Reports: Hx Contacts or Glasses Psychiatric History: Denies: Hx Panic Disorder - Cancer History Cancer Type, Location and Year: cancer of head, neck and face - Surgical History Surgery Procedure, Year, and Place: hysterectomy - in the 1973 Hx Anesthesia Reactions: No Infectious Disease History: No Infectious Disease History: Denies: Traveled Outside the [place] in Last 30 Days - Family History Known Family History: Negative: Cardiac Disease, Hypertension, Diabetes - Social History Alcohol Use: None Hx Substance Use: No Substance Use Type: Reports: None Hx Tobacco Use: No Smoking Status (MU): Never Smoked Tobacco Review of Systems Positive: Fever - subjective Eyes: Negative ENT: Other - right side jaw pain Cardiovascular: Negative Respiratory: Negative Gastrointestinal: Negative Genitourinary: Negative Negative: dysuria Musculoskeletal: Negative Skin: Other - skin graft from left leg to right jaw Neurological: Negative Psychological: Normal All Other Systems Reviewed And Are Negative: Yes Physical Exam Triage Information Reviewed: Yes Vital Signs On Initial Exam: Initial Vitals Temp Pulse Resp BP Pulse Ox 98.9 F 88 16 154/65 95 01/20/17 19:08 01/20/17 19:08 01/20/17 19:08 01/20/17 19:08 01/20/17 19:08 Vital Signs Reviewed: Yes Appearance: Positive: No Pain Distress, Ill-Appearing Skin: Positive: Other - Trachetomomy site is still open with granulation tissue. There is no erythema, but minimal yellow drainage. Her left upper thigh is the skin graft donor site, and it has granulation tissue with no erythema or drainage. Head/Face: Positive: Other - swollen face with erythema at the right jaw. There is a 2 cm open area at the bottom lip, which is purulent with drainage. There is a nasogastric tube in place Eyes: Positive: EOMI, ALMA ENT: Positive: Normal ENT inspection Neck: Positive: Supple, Nontender Respiratory/Lung Sounds: Positive: Clear to Auscultation, Breath Sounds Present Cardiovascular: Positive: RRR Abdomen Description: Positive: Nontender, Soft Bowel Sounds: Positive: Present Musculoskeletal: Positive: Normal, Strength/ROM Intact Neurological: Positive: Normal, Sensory/Motor Intact, Alert, Oriented to Person Place, Time Psychiatric: Positive: Affect/Mood Appropriate Diagnostics - Vital Signs Vital Signs Temp Pulse Resp BP Pulse Ox 01/20/17 19:08 98.9 F 88 16 154/65 95 - Laboratory Lab Results: Lab Results 01/20/17 01/20/17 01/20/17 Range/Units 20:00 20:00 20:00 WBC 17.2 H (3.5-10.8) 10^3/ul RBC 3.41 L (4.0-5.4) 10^6/ul Hgb 9.6 L (12.0-16.0) g/dl Hct 29 L (35-47) % MCV 86 (80-97) fL MCH 28 (27-31) pg MCHC 33 (31-36) g/dl RDW 15 (10.5-15) % Plt Count 411 (150-450) 10^3/ul MPV 9 (7.4-10.4) um3 Neut % (Auto) 81.0 (38-83) % Lymph % (Auto) 9.2 L (25-47) % [place] % (Auto) 8.2 (1-9) % Eos % (Auto) 0.5 (0-6) % Baso % (Auto) 1.1 (0-2) % Absolute Neuts (auto) 13.9 H (1.5-7.7) 10^3/ul Absolute Lymphs (auto) 1.6 (1.0-4.8) 10^3/ul Absolute Monos (auto) 1.4 H (0-0.8) 10^3/ul Absolute Eos (auto) 0.1 (0-0.6) 10^3/ul Absolute Basos (auto) 0.2 (0-0.2) 10^3/ul Absolute Nucleated RBC 0.02 10^3/ul Nucleated RBC % 0.1 INR (Anticoag Therapy) 1.01 (0.89-1.11) APTT 25.1 L (26.0-36.3) seconds Sodium 134 (133-145) mmol/L Potassium 3.3 L (3.5-5.0) mmol/L Chloride 96 L (101-111) mmol/L Carbon Dioxide 30 (22-32) mmol/L Anion Gap 8 (2-11) mmol/L BUN 20 (6-24) mg/dL Creatinine 0.55 (0.51-0.95) mg/dL Est GFR ( Amer) 136.1 (>60) Est GFR (Non-Af Amer) 105.8 (>60) BUN/Creatinine Ratio 36.4 H (8-20) Glucose 116 H (70-100) mg/dL Lactic Acid (0.5-2.0) mmol/L Calcium 10.0 (8.6-10.3) mg/dL Total Bilirubin 0.50 (0.2-1.0) mg/dL AST 20 (13-39) U/L ALT 19 (7-52) U/L Alkaline Phosphatase 65 (34-104) U/L C-Reactive Protein 32.99 H (< 5.00) mg/L Total Protein 6.6 (6.4-8.9) g/dL Albumin 3.1 L (3.2-5.2) g/dL Globulin 3.5 (2-4) g/dL Albumin/Globulin Ratio 0.9 L (1-3) Lipase 16 (11.0-82.0) U/L Urine Color Urine Appearance Urine pH (5-9) Ur Specific [place] (1.010-1.030) Urine Protein (Negative) Urine Ketones (Negative) Urine Blood (Negative) Urine Nitrate (Negative) Urine Bilirubin (Negative) Urine Urobilinogen (Negative) Ur Leukocyte Esterase (Negative) Urine Glucose (Negative) Urine Ascorbic Acid (Negative) 01/20/17 01/20/17 Range/Units 20:00 22:29 WBC (3.5-10.8) 10^3/ul RBC (4.0-5.4) 10^6/ul Hgb (12.0-16.0) g/dl Hct (35-47) % MCV (80-97) fL MCH (27-31) pg MCHC (31-36) g/dl RDW (10.5-15) % Plt Count (150-450) 10^3/ul MPV (7.4-10.4) um3 Neut % (Auto) (38-83) % Lymph % (Auto) (25-47) % [place] % (Auto) (1-9) % Eos % (Auto) (0-6) % Baso % (Auto) (0-2) % Absolute Neuts (auto) (1.5-7.7) 10^3/ul Absolute Lymphs (auto) (1.0-4.8) 10^3/ul Absolute Monos (auto) (0-0.8) 10^3/ul Absolute Eos (auto) (0-0.6) 10^3/ul Absolute Basos (auto) (0-0.2) 10^3/ul Absolute Nucleated RBC 10^3/ul Nucleated RBC % INR (Anticoag Therapy) (0.89-1.11) APTT (26.0-36.3) seconds Sodium (133-145) mmol/L Potassium (3.5-5.0) mmol/L Chloride (101-111) mmol/L Carbon Dioxide (22-32) mmol/L Anion Gap (2-11) mmol/L BUN (6-24) mg/dL Creatinine (0.51-0.95) mg/dL Est GFR ( Amer) (>60) Est GFR (Non-Af Amer) (>60) BUN/Creatinine Ratio (8-20) Glucose (70-100) mg/dL Lactic Acid 0.9 (0.5-2.0) mmol/L Calcium (8.6-10.3) mg/dL Total Bilirubin (0.2-1.0) mg/dL AST (13-39) U/L ALT (7-52) U/L Alkaline Phosphatase (34-104) U/L C-Reactive Protein (< 5.00) mg/L Total Protein (6.4-8.9) g/dL Albumin (3.2-5.2) g/dL Globulin (2-4) g/dL Albumin/Globulin Ratio (1-3) Lipase (11.0-82.0) U/L Urine Color Yellow Urine Appearance Clear Urine pH 7.0 (5-9) Ur Specific [place] 1.029 (1.010-1.030) Urine Protein Negative (Negative) Urine Ketones Negative (Negative) Urine Blood Negative (Negative) Urine Nitrate Negative (Negative) Urine Bilirubin Negative (Negative) Urine Urobilinogen Negative (Negative) Ur Leukocyte Esterase Negative (Negative) Urine Glucose Negative (Negative) Urine Ascorbic Acid * H (Negative) Result Diagrams: 01/20/17 20:00 01/20/17 20:00 Lab Statement: Any lab studies that have been ordered have been reviewed, and results considered in the medical decision making process. - Radiology CXR Xray Interpretation: Positive (See Comments) - IMPRESSION: RIGHT BASILAR INFILTRATE AND SMALL PLEURAL EFFUSION. Radiology Interpretation Completed By: Radiologist - CT neck CT Interpretation: Positive (See Comments) - IMPRESSION: 1. POST SURGICAL CHANGES IN THE MANDIBLE DESCRIBED. INFERIOR TO THE SURGICAL SITE THERE IS A RELATIVELY PROMINENT AIR-FLUID COLLECTION MOST CONSISTENT WITH A POSTOPERATIVE SEROMA OR AN ABSCESS. 2. RIGHT PLEURAL EFFUSION, RECOMMEND CHEST X-RAY CORRELATION. CT Interpretation Completed By: Radiologist Re-Evaluation - Re-Evaluation First Eval Re-Evaluation Time: 20:59 Change: Unchanged Comment: Addressed Pt's family's concerns, answered questions to their satisfaction. They are agreeable to the current course of Tx. Second Eval Re-Evaluation Time: 22:47 Change: Unchanged Comment: Pt and family were informed of results of imaging study and lab work, they are agreeable to be transferred for further evaluationa and care. Course/Dx - Course Assessment/Plan: Alyssia Gonzalez is an 81 yo female presenting to [facility] with jaw and leg pain as well as subjective fever S/P jaw replacement surgery. After clinical examination, positive CT neck and CXR (see documentation), and review of her lab work, as well as discussion with Dr. Curry she will be transferred to [facility]. PURULENT DRAINAGE FROM JAW SURGICAL SITE. FLUID COLLECTION SEEN ON CT. INFILTRATE ON CXR. DISCUSSED WITH [facility]. ACCEPTED IN TRANSFER BY DR CURRY. TRANSFER TO [facility] STABLE. - Diagnoses Provider Diagnoses: Pneumonia, Surgical wound infection - Provider Notifications Discussed Care Of Patient With: 2308 - [facility] transfer center - Discussed Pt condition. 2315 - Dr. Curry ([facility]) - Discussed Pt condition, accepts Pt for transfer. Discharge - Discharge Plan Condition: Stable Disposition: TRANS HIGHER LVL OF CARE FAC Discharge Disposition Comment: Transferred to [facility] for further evaluation and care. Referrals: Stephanie Shoemaker MD [Primary Care Provider] - The documentation as recorded by the jaylan rees Timothy accurately reflects the service I personally performed and the decisions made by me, Al Zavaleta MD.
[2017-01-21 00:03] VITALS: BP 152/59
[2017-01-21] MEDS ORDERED: Morphine INJ* 4 MG/ML 1 ML CARPUJECT IV ONE (00:13)
[2017-01-21] MEDS ORDERED: Morphine INJ* 4 MG/ML 1 ML CARPUJECT ONE (00:15)
--- NOTE | 2017-01-22 10:04 | PN ---
Progress Note - Progress Note Note: Patient preliminary would culture grew proteus mirabilis. Patient was transferred to [place] for further management of post surgical infection so no further action needed at this time.
== END 2017-01-21 00:03 | disposition short-term general hospital (02) ==
LOC: ED 18:48
DX: J18.9 Pneumonia, unspecified organism (principal); R50.9 Fever, unspecified
CPT/HCPCS: 36415; 70491; 71010; 80053; 81003; 83605; 83690; 85025; 85610; 85730; 86140; 87040; 87070; 87077; 87186; 87205; 87640; 87641; 96374; 96375; 99285; J0696; J2270; J2405; Q9967

== ENCOUNTER 2018-06-08 22:39 | Emergency (ER) | payer MEDICARE, MEDICAID ==
[2018-06-08] MEDS ORDERED: Morphine VIAL* 4 MG/ML VIAL (1 ml vial) IV ONE (23:16)
[2018-06-08] MEDS ORDERED: Ondansetron ODT TAB* 4 MG SL PRN (23:17)
[2018-06-08] MEDS ORDERED: Ondansetron ODT TAB* 4 MG ONE (23:21)
[2018-06-08] MEDS ORDERED: Morphine INJ* 2 MG/ML 1 ML SYRINGE (TWO MG - NEW SYRINGE VERSION) ONE (23:21)
[2018-06-08 23:47] LABS: ABS Basophils 0.1 10^3/ul (0-0.2); ABS Eosinophils 0.1 10^3/ul (0-0.6); ABS Lymphocytes 0.9 10^3/ul (1.0-4.8); ABS Monocytes 1.2 10^3/ul (0-0.8); ABS Neutrophils 9.1 10^3/ul (1.5-7.7); ABS Nucleated RBC 0 10^3/ul; Hematocrit 33 % (35-47); Hemoglobin 10.7 g/dl (12.0-16.0); Lymphocyte % 7.9 % (25-47); Mean Corpuscular HGB Conc 33 g/dl (31-36); Mean Corpuscular Hemoglobin 26 pg (27-31); Mean Corpuscular Volume 81 fL (80-97); Mean Platelet Volume 9.4 um3 (7.4-10.4); Nucleated Red Blood Cells % 0; Platelet Count 237 10^3/ul (150-450); Red Blood Count 4.07 10^6/ul (4.00-5.40); Red Cell Distribution Width 14 % (10.5-15); White Blood Count 11.4 10^3/ul (3.5-10.8)
[2018-06-08 23:55] LABS: INR 1.28 (0.77-1.02)
[2018-06-09 00:23] LABS: EGFR Non-African American 99.3 (>60)
[2018-06-09] MEDS ORDERED: Iohexol 350* (CONTRAST) 500 ML MDV IV ONE (00:30)
--- NOTE | 2018-06-09 01:08 | ED ---
Back Pain - HPI Summary HPI Summary: This is tammiibe Wade Baig documenting for attending Dr. Crys Guevara MD. A 82 y/o female ASHLY accompanied by caretakers presents to ED c/o lower back pain reaching 5/10 in severity. As per triage, "t arrives via EMS. Pt has hx of lung cancer and developed right middle back pain yesterday. No worsening SOB. Pt states pain worse with movement. Hasn't taken any pain medication for it yet". According to the caretakers, she has been experiencing lower back pain since yesterday (no fall). In the ED room, the patient has a rate of 97 BPM, O2 saturation of 94% and blood pressure of 156/80. Pt denies any urinary symptoms, however has left leg pain and SOB. It was noted that the patient has been diagnosed with lung cancer (1 year ago). The cancer spread from her face to her lungs. At this point, the patient will undergo no surgery, chemotherapy or given any medications for it. PMHx of left leg graft. - History of Current Complaint Chief Complaint: EDBackInjuryPain Stated Complaint: BACK PAIN Time Seen by Provider: 06/08/18 23:11 Hx Obtained From: Patient, Family/[employer] Onset/Duration: Sudden Onset, Lasting Days, Still Present Onset/Duration: Started Days Ago, Still Present Timing: Constant Back Pain Location: Is Discrete @ - Lower back pain Severity Initially: Moderate Severity Currently: Moderate Pain Intensity: 5 Pain Scale Used: 0-10 Numeric Character: Unable to Describe Aggravating Symptom(s): Nothing Alleviating Symptom(s): Nothing Associated Signs And Symptoms: Negative: Fever - Allergies/Home Medications Allergies/Adverse Reactions: Allergies Allergy/AdvReac Type Severity Reaction Status Date / Time codeine AdvReac GI Upset Verified 06/08/18 22:53 PMH/Surg Hx/FS Hx/Imm Hx Endocrine/Hematology History: Denies: Hx Diabetes Cardiovascular History: Denies: Hx Hypertension, Hx Pacemaker/ICD Respiratory History: Denies: Other Respiratory Problems/Disorders History: Denies: Hx Renal Disease Sensory History: Reports: Hx Contacts or Glasses Denies: Hx Hearing Aid Opthamlomology History: Reports: Hx Contacts or Glasses Psychiatric History: Denies: Hx Panic Disorder - Cancer History Cancer Type, Location and Year: cancer of head, neck and face - Surgical History Surgery Procedure, Year, and Place: hysterectomy - in the 1973 Hx Anesthesia Reactions: No Infectious Disease History: No Infectious Disease History: Denies: Traveled Outside the [place] in Last 30 Days - Family History Known Family History: Negative: Cardiac Disease, Hypertension, Diabetes - Social History Alcohol Use: None Hx Substance Use: No Substance Use Type: Reports: None Hx Tobacco Use: No Smoking Status (MU): Never Smoked Tobacco Review of Systems Negative: Fever Positive: Shortness Of Breath Positive: no symptoms reported Positive: Other - POSITIVE: Lower back pain, left leg pain All Other Systems Reviewed And Are Negative: Yes Physical Exam - Summary Physical Exam Summary: VITAL SIGNS: Reviewed. GENERAL: Patient is a well-developed and nourished female who is lying comfortable in the stretcher. Patient is not in any acute respiratory distress. Having pain in upper right back. Pain is worse with breathing. HEAD AND FACE: No signs of trauma. No ecchymosis, hematomas or skull depressions. No sinus tenderness. EYES: PERRLA, EOMI x 2, No injected conjunctiva, no nystagmus. EARS: Hearing grossly intact. Ear canals and tympanic membranes are within normal limits. MOUTH: Oropharynx within normal limits. NECK: Supple, trachea is midline, no adenopathy, no JVD, no carotid bruit, no c- spine tenderness, neck with full ROM. CHEST: Symmetric, no tenderness at palpation LUNGS: Clear to auscultation bilaterally. No wheezing or crackles. CVS: Regular rate and rhythm, S1 and S2 present, no murmurs or gallops appreciated. ABDOMEN: Soft, non-tender. No signs of distention. No rebound no guarding, and no masses palpated. Bowel sounds are normal. EXTREMITIES: FROM in all major joints, no edema, no cyanosis or clubbing. Having pain in upper right back. Pain is worse with breathing. NEURO: Alert and oriented x 3. No acute neurological deficits. Speech is normal and follows commands. SKIN: Dry and warm Triage Information Reviewed: Yes Vital Signs On Initial Exam: Initial Vitals Temp Pulse Resp BP Pulse Ox 98.7 F 93 16 156/80 92 06/08/18 22:51 06/08/18 22:51 06/08/18 22:51 06/08/18 22:51 06/08/18 22:51 Vital Signs Reviewed: Yes Diagnostics - Vital Signs Vital Signs Temp Pulse Resp BP Pulse Ox 06/09/18 00:00 88 96 06/08/18 23:55 88 160/79 95 06/08/18 23:27 94 95 06/08/18 23:25 98 16 164/89 94 06/08/18 22:55 95 156/80 92 06/08/18 22:51 98.7 F 93 16 156/80 92 - Laboratory Lab Results: Lab Results 06/08/18 06/08/18 06/08/18 Range/Units 23:33 23:36 23:36 WBC 11.4 H (3.5-10.8) 10^3/ul RBC 4.07 (4.00-5.40) 10^6/ul Hgb 10.7 L (12.0-16.0) g/dl Hct 33 L (35-47) % MCV 81 (80-97) fL MCH 26 L (27-31) pg MCHC 33 (31-36) g/dl RDW 14 (10.5-15) % Plt Count 237 (150-450) 10^3/ul MPV 9.4 (7.4-10.4) um3 Neut % (Auto) 80.2 (38-83) % Lymph % (Auto) 7.9 L (25-47) % [place] % (Auto) 10.2 H (0-7) % Eos % (Auto) 1.0 (0-6) % Baso % (Auto) 0.7 (0-2) % Absolute Neuts (auto) 9.1 H (1.5-7.7) 10^3/ul Absolute Lymphs (auto) 0.9 L (1.0-4.8) 10^3/ul Absolute Monos (auto) 1.2 H (0-0.8) 10^3/ul Absolute Eos (auto) 0.1 (0-0.6) 10^3/ul Absolute Basos (auto) 0.1 (0-0.2) 10^3/ul Absolute Nucleated RBC 0 10^3/ul Nucleated RBC % 0 INR (Anticoag Therapy) 1.28 H (0.77-1.02) D-Dimer, Quantitative 258 H (Less Than 230) ng/mL Sodium 128 L (135-145) mmol/L Potassium 3.7 (3.5-5.0) mmol/L Chloride 93 L (101-111) mmol/L Carbon Dioxide 28 (22-32) mmol/L Anion Gap 7 (2-11) mmol/L BUN 13 (6-24) mg/dL Creatinine 0.58 (0.51-0.95) mg/dL Est GFR ( Amer) 120.1 (>60) Est GFR (Non-Af Amer) 99.3 (>60) BUN/Creatinine Ratio 22.4 H (8-20) Glucose 126 H (70-100) mg/dL Calcium 10.5 H (8.6-10.3) mg/dL Magnesium 1.8 L (1.9-2.7) mg/dL Total Bilirubin 0.60 (0.2-1.0) mg/dL AST 15 (13-39) U/L ALT 10 (7-52) U/L Alkaline Phosphatase 75 (34-104) U/L Troponin I 0.01 (<0.04) ng/mL C-Reactive Protein 68.45 H (<8.01) mg/L B-Natriuretic Peptide ( - 100) pg/mL Total Protein 6.9 (6.4-8.9) g/dL Albumin 3.4 (3.2-5.2) g/dL Globulin 3.5 (2-4) g/dL Albumin/Globulin Ratio 1.0 (1-3) Lipase 12 (11.0-82.0) U/L 06/08/18 Range/Units 23:36 WBC (3.5-10.8) 10^3/ul RBC (4.00-5.40) 10^6/ul Hgb (12.0-16.0) g/dl Hct (35-47) % MCV (80-97) fL MCH (27-31) pg MCHC (31-36) g/dl RDW (10.5-15) % Plt Count (150-450) 10^3/ul MPV (7.4-10.4) um3 Neut % (Auto) (38-83) % Lymph % (Auto) (25-47) % [place] % (Auto) (0-7) % Eos % (Auto) (0-6) % Baso % (Auto) (0-2) % Absolute Neuts (auto) (1.5-7.7) 10^3/ul Absolute Lymphs (auto) (1.0-4.8) 10^3/ul Absolute Monos (auto) (0-0.8) 10^3/ul Absolute Eos (auto) (0-0.6) 10^3/ul Absolute Basos (auto) (0-0.2) 10^3/ul Absolute Nucleated RBC 10^3/ul Nucleated RBC % INR (Anticoag Therapy) (0.77-1.02) D-Dimer, Quantitative (Less Than 230) ng/mL Sodium (135-145) mmol/L Potassium (3.5-5.0) mmol/L Chloride (101-111) mmol/L Carbon Dioxide (22-32) mmol/L Anion Gap (2-11) mmol/L BUN (6-24) mg/dL Creatinine (0.51-0.95) mg/dL Est GFR ( Amer) (>60) Est GFR (Non-Af Amer) (>60) BUN/Creatinine Ratio (8-20) Glucose (70-100) mg/dL Calcium (8.6-10.3) mg/dL Magnesium (1.9-2.7) mg/dL Total Bilirubin (0.2-1.0) mg/dL AST (13-39) U/L ALT (7-52) U/L Alkaline Phosphatase (34-104) U/L Troponin I (<0.04) ng/mL C-Reactive Protein (<8.01) mg/L B-Natriuretic Peptide 37 ( - 100) pg/mL Total Protein (6.4-8.9) g/dL Albumin (3.2-5.2) g/dL Globulin (2-4) g/dL Albumin/Globulin Ratio (1-3) Lipase (11.0-82.0) U/L Result Diagrams: 06/08/18 23:36 06/08/18 23:33 Lab Statement: Any lab studies that have been ordered have been reviewed, and results considered in the medical decision making process. - CT CTA Chest CT Interpretation Completed By: Radiologist - A CTA Chest revealed 1. No pulmonary embolism. 2. Multiple spiculated opacities in both upper and lower lobes and the right middle lobe, which have increased in seize and number since the prior CT scan on 07/22/2017, and are most compatible with metastatic disease. 3. Lytic lesions in the T4, T9, and T11 vertebral bodies, which are new compared to the prior CT scan on 12/02/2016, and are compatible with metastatic deposits. 4. Compression deformities involving T7, T9 and T10 which are new compared to the prior CT scan on 12/02/2016. 5. 1.4 cm nodule in the left adrenal gland, which has developed since the prior CT scan on 07/22/2017 and likely represents a metastatic deposit. 6. Moderate size pericardia effusion that has increased in size compared to the prior CT scan on 07/22/2017. ED physician reviewed this radiology report. - EKG 2336 Cardiac Rate: NL - 87 BPM EKG Rhythm: Sinus Rhythm EKG Interpretation: RBBB, normal axis. Back Pain Course/Dx - Course Course Of Treatment: A 82 y/o female BIBA accompanied by caretakers presents to ED c/o lower back pain reaching 5/10 in severity. A CTA Chest revealed 1. No pulmonary embolism. 2. Multiple spiculated opacities in both upper and lower lobes and the right middle lobe, which have increased in seize and number since the prior CT scan on 07/22/2017, and are most compatible with metastatic disease. 3. Lytic lesions in the T4, T9, and T11 vertebral bodies, which are new compared to the prior CT scan on 12/02/2016, and are compatible with metastatic deposits. 4. Compression deformities involving T7, T9 and T10 which are new compared to the prior CT scan on 12/02/2016. 5. 1.4 cm nodule in the left adrenal gland, which has developed since the prior CT scan on 07/22/2017 and likely represents a metastatic deposit. 6. Moderate size pericardia effusion that has increased in size compared to the prior CT scan on 07/22/2017. An EKG revealed a rate of 87 BPM, RBBB, normal axis. In the ED course, the patient recieved Zofran, Omnipaque and Morphine. During reevaluation, the patient choose to be discharged home with pain medications. Patient is to be discharged with a diagnosis of metastatic disease with pain medications. Patient is to follow up with Dr. Alonzo in 1-2 days. Pt is agreeable with this plan. - Diagnoses Provider Diagnoses: Metastatic disease Discharge - Sign-Out/Discharge Documenting (check all that apply): Patient Departure - DISCHARGE - Discharge Plan Condition: Stable Disposition: HOME Prescriptions: oxyCODONE/Acetamin 5/325 MG* [Percocet 5/325 TAB*] 1 tab PO Q6H PRN #20 tab MDD 4 PRN Reason: Pain Patient Education Materials: Chronic Pain (ED) Referrals: Stephanie Shoemaker MD [Primary Care Provider] - 2 Days Wolf Alonzo MD [Medical Doctor] - 2 Days Additional Instructions: RETURN TO THE ED FOR ANY NEW OR WORSENING SYMPTOMS.
[2018-06-09] MEDS ORDERED: Morphine INJ* 2 MG/ML 1 ML SYRINGE (TWO MG - NEW SYRINGE VERSION) IV ONE (02:21)
[2018-06-09 02:58] VITALS: BP 124/64
--- NOTE | 2018-06-09 07:52 | RAD ---
HISTORY: PE, back pain COMPARISONS: December 02, 2016 TECHNIQUE: Multiple contiguous axial CT scans of the chest were obtained after the administration of nonionic intravenous contrast, timed to the pulmonary arterial phase of contrast enhancement.. Coronal and sagittal multiplanar reformations are also submitted for review. FINDINGS: NECK AND THYROID: The lower neck and thyroid are unremarkable. CHEST WALL: There is no lower cervical, axillary, or supraclavicular lymphadenopathy by size criteria. HEART AND PERICARDIUM: There is moderate pericardial effusion. AORTA AND PULMONARY VASCULATURE: There is no pulmonary arterial filling defect to suggest pulmonary embolism. There is no linear filling defect within the aorta to suggest aortic dissection. MEDIASTINUM: There is a 1.8 cm short axis subcarinal lymph node is partially calcified. HENRY: There are bilateral hilar lymph nodes measuring up to 1 cm in short axis. AIRWAY AND ESOPHAGUS: The airway is unremarkable, without endobronchial filling defect. The esophagus is grossly normal. LUNG PARENCHYMA: There is multifocal solid and part solid nodularity throughout both lungs, measuring up to 2.4 cm in size PLEURA: No pleural abnormalities are noted. UPPER ABDOMEN: There is a diffuse nodular appearance to the left adrenal gland which is new compared to the December 02, 2016 examination. BONES AND SOFT TISSUES: There is diffuse osteopenia. There are compression deformities of T7, T9, T10, with an osteolytic lesion of T9 is seen on sagittal image 57 measuring 1.5 cm in size. These are new from the previous examination. There is a lytic lesion of the inferior endplate of T5. There is a smaller lytic lesion of T12. OTHER: None. IMPRESSION: 1. NO PULMONARY ARTERIAL FILLING DEFECT TO SUGGEST PULMONARY EMBOLISM. 2. THERE IS BEEN INTERVAL DEVELOPMENT OF MULTIPLE NODULES THROUGHOUT BOTH LUNGS MOST CONSISTENT WITH METASTATIC DISEASE MEASURING UP TO 2.4 CM IN SIZE. 3. THERE IS MEDIASTINAL LYMPHADENOPATHY WITH BORDERLINE HILAR ADENOPATHY. 4. THERE HAS BEEN INTERVAL DEVELOPMENT OF MULTIPLE LYTIC LESIONS THROUGHOUT THE AXIAL SKELETON WITH COMPRESSION DEFORMITIES OF T7, T9, T10, WITHOUT OSSEOUS RETROPULSION, ALSO CONSISTENT WITH METASTATIC DISEASE. 5. THERE IS NODULARITY OF THE LEFT ADRENAL GLAND THAT IS NEW FROM THE PREVIOUS EXAMINATION, ALSO SUSPICIOUS FOR METASTATIC DISEASE. 6. MODERATE PERICARDIAL EFFUSION. R2
== END 2018-06-09 02:58 | disposition home or self-care (01) ==
LOC: ED 22:39
DX: C79.51 Secondary malignant neoplasm of bone (principal); C78.02 Secondary malignant neoplasm of left lung; C78.01 Secondary malignant neoplasm of right lung; C76.0 Malignant neoplasm of head, face and neck; R59.0 Localized enlarged lymph nodes; I31.3 Pericardial effusion (noninflammatory); I45.10 Unspecified right bundle-branch block; Z88.5 Allergy status to narcotic agent
CPT/HCPCS: 36415; 71275; 80053; 82550; 83690; 83735; 83880; 84484; 85025; 85379; 85610; 86140; 93005; 96374; 96376; 99283; A9270-GY; J2270; Q9967

== ENCOUNTER 2018-06-12 19:09 | Emergency (ER) | payer MEDICARE, MEDICAID ==
[2018-06-12] MEDS ORDERED: NS 0.9% 1000 ML* 1,000 ML IV ONE ×2 (19:42→19:44)
[2018-06-12] MEDS ORDERED: Digoxin IV* 0.5 MG/2 ML AMP (0.25 MG/ML) ONE (19:43)
[2018-06-12] MEDS ORDERED: Diltiazem IV VIAL* 5 MG/ML 10 ML VIAL IV SLOW PU ONE (19:43)
[2018-06-12] MEDS ORDERED: Diltiazem IV* 5 MG/ML 5 ML VIAL (for loading dose/IV Push) (25 MG) ONE (19:44)
[2018-06-12] MEDS ORDERED: Digoxin IV* 0.5 MG/2 ML AMP (0.25 MG/ML) IV SLOW PU ONE (19:44)
[2018-06-12] MEDS ORDERED: Morphine INJ* 2 MG/ML 1 ML SYRINGE (TWO MG - NEW SYRINGE VERSION) IV PRN (19:45)
[2018-06-12] MEDS ORDERED: Ondansetron INJ* 2 MG/ML VIAL IV ONE (19:46)
[2018-06-12] MEDS ORDERED: Morphine INJ* 2 MG/ML 1 ML SYRINGE (TWO MG - NEW SYRINGE VERSION) ONE ×2 (19:57→21:05)
[2018-06-12 20:06] LABS: ABS Basophils 0.1 10^3/ul (0-0.2); ABS Eosinophils 0.1 10^3/ul (0-0.6); ABS Lymphocytes 1.5 10^3/ul (1.0-4.8); ABS Monocytes 1.1 10^3/ul (0-0.8); ABS Neutrophils 8.3 10^3/ul (1.5-7.7); ABS Nucleated RBC 0 10^3/ul; Eosinophil % 0.9 % (0-6); Hematocrit 36 % (35-47); Hemoglobin 11.9 g/dl (12.0-16.0); Lymphocyte % 13.7 % (25-47); Mean Corpuscular HGB Conc 33 g/dl (31-36); Mean Corpuscular Hemoglobin 27 pg (27-31); Mean Corpuscular Volume 81 fL (80-97); Mean Platelet Volume 10.4 um3 (7.4-10.4); Nucleated Red Blood Cells % 0; Platelet Count 276 10^3/ul (150-450); Red Blood Count 4.51 10^6/ul (4.00-5.40); Red Cell Distribution Width 14 % (10.5-15)
[2018-06-12 20:08] LABS: INR 1.83 (0.77-1.02)
[2018-06-12 20:15] LABS: EGFR Non-African American 85.5 (>60)
[2018-06-12] MEDS ORDERED: Morphine INJ** 4 MG/ML 1 ML CARPUJECT IV ONE (20:22)
--- NOTE | 2018-06-12 20:57 | ED ---
Back Pain - HPI Summary HPI Summary: This is negrita Mccord documenting for Dr. Crys Guevara MD. Pt is an 82 y/o F BIBA to ED c/o right sided upper back pain. She was seen in ED 2 days ago for same complaint, and she says she still feels pain. Rates her pain intensity as 9/10 in severity. Notes dizziness. Denies nausea or vomiting. PMHx of metastatic lung CA and had surgery for it in January. - History of Current Complaint Chief Complaint: EDBackInjuryPain Stated Complaint: PAIN Time Seen by Provider: 06/12/18 19:36 Hx Obtained From: Patient Onset/Duration: Lasting Days Back Pain Location: Is Discrete @ - right upper back Severity Currently: Severe Pain Intensity: 9 Pain Scale Used: 0-10 Numeric Associated Signs And Symptoms: Positive: Other - Dizziness, NEGATIVE: nausea, vomiting - Allergies/Home Medications Allergies/Adverse Reactions: Allergies Allergy/AdvReac Type Severity Reaction Status Date / Time codeine AdvReac GI Upset Verified 06/08/18 22:53 PMH/Surg Hx/FS Hx/Imm Hx Endocrine/Hematology History: Denies: Hx Diabetes Cardiovascular History: Denies: Hx Hypertension, Hx Pacemaker/ICD Respiratory History: Denies: Other Respiratory Problems/Disorders History: Denies: Hx Renal Disease Sensory History: Reports: Hx Contacts or Glasses Denies: Hx Hearing Aid Opthamlomology History: Reports: Hx Contacts or Glasses Psychiatric History: Denies: Hx Panic Disorder - Cancer History Cancer Type, Location and Year: cancer of head, neck and face - Surgical History Surgery Procedure, Year, and Place: hysterectomy - in the 1973 Hx Anesthesia Reactions: No Infectious Disease History: No Infectious Disease History: Denies: Traveled Outside the [place] in Last 30 Days - Family History Known Family History: Negative: Cardiac Disease, Hypertension, Diabetes - Social History Alcohol Use: None Hx Substance Use: No Substance Use Type: Reports: None Hx Tobacco Use: No Smoking Status (MU): Never Smoked Tobacco Review of Systems Negative: Vomiting, Nausea Positive: Other - Back pain Neurological: Other - Dizziness All Other Systems Reviewed And Are Negative: Yes Physical Exam - Summary Physical Exam Summary: VITAL SIGNS: Reviewed. GENERAL: Patient is a well-developed and nourished elderly-looking female who is lying comfortable in the stretcher. Patient is not in any acute respiratory distress. HEAD AND FACE: No signs of trauma. No ecchymosis, hematomas or skull depressions. No sinus tenderness. EYES: PERRLA, EOMI x 2, No injected conjunctiva, no nystagmus. EARS: Hearing grossly intact. Ear canals and tympanic membranes are within normal limits. MOUTH: Oropharynx within normal limits. NECK: Supple, trachea is midline, no adenopathy, no JVD, no carotid bruit, no c- spine tenderness, neck with full ROM. CHEST: Symmetric, no tenderness at palpation LUNGS: Clear to auscultation bilaterally. No wheezing or crackles. CVS: Irregular tachycardic, S1 and S2 present, no murmurs or gallops appreciated. ABDOMEN: Soft, non-tender. No signs of distention. No rebound no guarding, and no masses palpated. Bowel sounds are normal. EXTREMITIES: FROM in all major joints, no edema, no cyanosis or clubbing. NEURO: Alert and oriented x 3. No acute neurological deficits. Speech is normal and follows commands. SKIN: Dry and warm Triage Information Reviewed: Yes Vital Signs On Initial Exam: Initial Vitals Pulse Resp BP Pulse Ox 123 19 86/69 95 06/12/18 19:19 06/12/18 19:19 06/12/18 19:19 06/12/18 19:19 Vital Signs Reviewed: Yes Diagnostics - Vital Signs Vital Signs Temp Pulse Resp BP Pulse Ox 06/12/18 20:00 54 23 97 06/12/18 19:59 18 06/12/18 19:51 148 06/12/18 19:50 94 23 111/57 97 06/12/18 19:29 98.3 F 148 20 88/69 96 06/12/18 19:19 123 19 86/69 95 - Laboratory Lab Results: Lab Results 06/12/18 06/12/18 06/12/18 Range/Units 19:47 19:47 19:47 WBC 11.0 H (3.5-10.8) 10^3/ul RBC 4.51 (4.00-5.40) 10^6/ul Hgb 11.9 L (12.0-16.0) g/dl Hct 36 (35-47) % MCV 81 (80-97) fL MCH 27 (27-31) pg MCHC 33 (31-36) g/dl RDW 14 (10.5-15) % Plt Count 276 (150-450) 10^3/ul MPV 10.4 (7.4-10.4) um3 Neut % (Auto) 74.9 (38-83) % Lymph % (Auto) 13.7 L (25-47) % Harding % (Auto) 9.8 H (0-7) % Eos % (Auto) 0.9 (0-6) % Baso % (Auto) 0.7 (0-2) % Absolute Neuts (auto) 8.3 H (1.5-7.7) 10^3/ul Absolute Lymphs (auto) 1.5 (1.0-4.8) 10^3/ul Absolute Monos (auto) 1.1 H (0-0.8) 10^3/ul Absolute Eos (auto) 0.1 (0-0.6) 10^3/ul Absolute Basos (auto) 0.1 (0-0.2) 10^3/ul Absolute Nucleated RBC 0 10^3/ul Nucleated RBC % 0 INR (Anticoag Therapy) 1.83 H (0.77-1.02) APTT 29.3 (26.0-36.3) seconds Sodium 128 L (135-145) mmol/L Potassium 3.6 (3.5-5.0) mmol/L Chloride 93 L (101-111) mmol/L Carbon Dioxide 26 (22-32) mmol/L Anion Gap 9 (2-11) mmol/L BUN 15 (6-24) mg/dL Creatinine 0.66 (0.51-0.95) mg/dL Est GFR ( Amer) 103.5 (>60) Est GFR (Non-Af Amer) 85.5 (>60) BUN/Creatinine Ratio 22.7 H (8-20) Glucose 119 H (70-100) mg/dL Lactic Acid (0.5-2.0) mmol/L Calcium 11.1 H (8.6-10.3) mg/dL Magnesium 2.0 (1.9-2.7) mg/dL Total Bilirubin 0.50 (0.2-1.0) mg/dL AST 17 (13-39) U/L ALT 10 (7-52) U/L Alkaline Phosphatase 73 (34-104) U/L Troponin I 0.01 (<0.04) ng/mL B-Natriuretic Peptide ( - 100) pg/mL Total Protein 7.7 (6.4-8.9) g/dL Albumin 3.7 (3.2-5.2) g/dL Globulin 4.0 (2-4) g/dL Albumin/Globulin Ratio 0.9 L (1-3) TSH 6.52 H (0.34-5.60) mcIU/mL Blood Type Antibody Screen 06/12/18 06/12/18 06/12/18 Range/Units 19:47 19:47 19:47 WBC (3.5-10.8) 10^3/ul RBC (4.00-5.40) 10^6/ul Hgb (12.0-16.0) g/dl Hct (35-47) % MCV (80-97) fL MCH (27-31) pg MCHC (31-36) g/dl RDW (10.5-15) % Plt Count (150-450) 10^3/ul MPV (7.4-10.4) um3 Neut % (Auto) (38-83) % Lymph % (Auto) (25-47) % Harding % (Auto) (0-7) % Eos % (Auto) (0-6) % Baso % (Auto) (0-2) % Absolute Neuts (auto) (1.5-7.7) 10^3/ul Absolute Lymphs (auto) (1.0-4.8) 10^3/ul Absolute Monos (auto) (0-0.8) 10^3/ul Absolute Eos (auto) (0-0.6) 10^3/ul Absolute Basos (auto) (0-0.2) 10^3/ul Absolute Nucleated RBC 10^3/ul Nucleated RBC % INR (Anticoag Therapy) (0.77-1.02) APTT (26.0-36.3) seconds Sodium (135-145) mmol/L Potassium (3.5-5.0) mmol/L Chloride (101-111) mmol/L Carbon Dioxide (22-32) mmol/L Anion Gap (2-11) mmol/L BUN (6-24) mg/dL Creatinine (0.51-0.95) mg/dL Est GFR ( Amer) (>60) Est GFR (Non-Af Amer) (>60) BUN/Creatinine Ratio (8-20) Glucose (70-100) mg/dL Lactic Acid 1.1 (0.5-2.0) mmol/L Calcium (8.6-10.3) mg/dL Magnesium (1.9-2.7) mg/dL Total Bilirubin (0.2-1.0) mg/dL AST (13-39) U/L ALT (7-52) U/L Alkaline Phosphatase (34-104) U/L Troponin I (<0.04) ng/mL B-Natriuretic Peptide 93 ( - 100) pg/mL Total Protein (6.4-8.9) g/dL Albumin (3.2-5.2) g/dL Globulin (2-4) g/dL Albumin/Globulin Ratio (1-3) TSH (0.34-5.60) mcIU/mL Blood Type A Positive Antibody Screen Negative Result Diagrams: 06/12/18 19:47 06/12/18 19:47 Lab Statement: Any lab studies that have been ordered have been reviewed, and results considered in the medical decision making process. - Radiology CXR Radiology Interpretation Completed By: ED Physician - Hyperinflation and bilateral pulmonary nodes, pending official report. - EKG 19:45 Cardiac Rate: Tachycardia EKG Rhythm: Atrial Fibrillation EKG Interpretation: RBBB 20:25 Cardiac Rate: NL - 90 bpm EKG Rhythm: Sinus Rhythm EKG Interpretation: RBBB Re-Evaluation - Re-Evaluation First Eval Re-Evaluation Time: 21:30 Change: Improved - Pt feels somewhat better, but does still feel some pain. When given the option to stay or go home she said she would like to be admitted. Second Eval Re-Evaluation Time: 21:45 Comment: Pt is notified that she would have to pay for the stay herself, and with this new information she decides to go home. Back Pain Course/Dx - Course Course Of Treatment: Pt is an 82 y/o F BIBA to ED c/o right sided upper back pain. She was seen in ED 2 days ago for same complaint, and she says she still feels pain. During her last prior visit a full workup was complete and chest CT ruled out PE. Rates her pain intensity as 9/10 in severity. Notes dizziness. Denies nausea or vomiting. PMHx of metastatic lung CA and had surgery for it in January. Physical exam revealed elderly looking female with irregular tachycardia. EKG taken at 19:45 showed tachycardia at 144 bpm with rapid A fib and RBBB. At 20:10 pt was given Digoxin IV and Cardizem IV and pt converted to sinus rhythm. Repeat EKG was done and sinus was shown. EKG taken at 20:25 showed sinus rhythm as 90 bpm with RBBB. Prior Afib most likely induced by pain. CXR showed hyperinflation and bilateral pulmonary nodes, pending official report. In ED course pt was also given Zofran, fluids, morphine, and fentanyl. At 21:30 pt still feels some pain but Is somewhat better. When given the option to stay or go home she said she would like to be admitted. Spoke with Dr. Allen who says she does not qualify unless she pays for the stay herself. Pt with this new information decides to go home. Pt is diagnosed with metastatic cancer, chronic pain, and paroxysmal A fib and discharged home with a prescription of Fentanyl and Dilaudid. She is told to follow up with her oncologist and pt is agreeable with this plan. - Diagnoses Provider Diagnoses: Metastatic cancer, Chronic pain, Paroxysmal A-fib - Provider Notifications Discussed Care Of Patient With: Shaka Allen Time Discussed With Above Provider: 21:35 Instructed by Provider To: Other - Dr. Allen says pt does not qualify for admission unless she pays for the stay herself. Discharge - Sign-Out/Discharge Documenting (check all that apply): Patient Departure - Discharge - Discharge Plan Condition: Stable Disposition: HOME Prescriptions: fentaNYL [Duragesic] 25 mcg TD SEE INSTRUCTIONS #10 patch MDD one patch every 3 days Hydromorphone HCl [Dilaudid] 2 mg PO Q4HR PRN #30 tablet MDD 6 PRN Reason: Pain Patient Education Materials: A-fib (Atrial Fibrillation) (ED), Lung Cancer (DC) , Chronic Pain (ED) Referrals: Wolf Alonzo MD [Medical Doctor] - 1 Day Additional Instructions: Follow up with oncologist. RETURN TO ED FOR ANY NEW OR WORSENING SYMPTOMS.
[2018-06-12] MEDS ORDERED: fentaNYL* 50 MCG/ML 2 ML VIAL (100 MCG VIAL) IV SLOW PU ONE (21:06)
[2018-06-12] MEDS ORDERED: fentaNYL PATCH 25 MCG/HR TRANSDERM ONE (21:19)
[2018-06-12 22:23] VITALS: BP 144/66
--- NOTE | 2018-06-13 07:18 | RAD ---
INDICATION: Chest pain COMPARISON: Chest x-ray March 15, 2014 2018 TECHNIQUE: Single AP portable view of the chest was obtained. FINDINGS: Image quality is compromised due to the relative inferiority of a portable chest x-ray. The heart and mediastinum exhibit normal size and contour. There is a focal density overlying the mid-level right lung as well as a more linear density overlying the upper to mid level left lung. Similar to the prior chest x-ray the lungs appear hyperinflated. Visualized bones are normal for the patient's age. IMPRESSION: Nodular and linear densities as described above. Follow-up chest x-ray after an appropriate course of therapy is advised to ascertain resolution as neoplasm is not excluded in the differential diagnosis. R0
== END 2018-06-12 22:55 | disposition home or self-care (01) ==
LOC: ED 19:09
DX: C78.00 Secondary malignant neoplasm of unspecified lung (principal); C76.0 Malignant neoplasm of head, face and neck; G89.29 Other chronic pain; I48.91 Unspecified atrial fibrillation; Z88.5 Allergy status to narcotic agent; I45.10 Unspecified right bundle-branch block
CPT/HCPCS: 36415; 71045; 80053; 83605; 83735; 83880; 84443; 84484; 85025; 85610; 85730; 86850; 86900; 86901; 93005; 96361; 96374; 96375; 99284; A9270-GY; J1160; J2270; J2405; J3490

== ENCOUNTER 2018-06-25 07:51 | Emergency (ER) | payer MEDICARE, MEDICAID ==
--- NOTE | 2018-06-25 08:21 | ED ---
HPI Chest Pain - HPI Summary HPI Summary: The pt is an 82 y/o female BIBA accompanied by her daughter and son presenting to [facility] c/o intermittent lower back pain for about one week worsened at 07:00 today. She was at [facility] on 06/12/2018 for CP and received medications to no relief. She notes palpitations, cold sweats and generalized weakness. The pt takes Warfarin blood thinners five times a week. This is scribe Kely Rhoades documenting for attending Bandar Joel MD. I, Bandar Joel MD, personally performed the services described in this documentation as scribed in my presence and it is both accurate and complete. 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 Onset/Duration: Started Weeks Ago - 1 week, Still Present, Worse Since - 07:00 today Timing: Intermittent Initial Severity: Severe Current Severity: Severe Pain Intensity: 8 Pain Scale Used: 0-10 Numeric Alleviating Factor(s): Nothing Associated Signs and Symptoms: Positive: Chest Pain - 1 week ago, Palpitations, Back Pain - Mid and lower back, Other: - Positive: Cold sweats - Additional Pertinent History Primary Care Physician: [id number] - Allergy/Home Medications Allergies/Adverse Reactions: Allergies Allergy/AdvReac Type Severity Reaction Status Date / Time codeine AdvReac GI Upset Verified 06/25/18 07:57 Home Medications: Home Medications Coumadin 2.5 mg PO DAILY 06/25/18 [History Confirmed 06/25/18] PMH/Surg Hx/FS Hx/Imm Hx Previously Healthy: No Endocrine/Hematology History: Denies: Hx Diabetes Cardiovascular History: Reports: Hx Hypertension Denies: Hx Pacemaker/ICD Respiratory History: Denies: Other Respiratory Problems/Disorders History: Denies: Hx Renal Disease Sensory History: Reports: Hx Contacts or Glasses Denies: Hx Hearing Aid Opthamlomology History: Reports: Hx Contacts or Glasses Psychiatric History: Denies: Hx Panic Disorder - Cancer History Cancer Type, Location and Year: cancer of head, neck and face - Surgical History Surgery Procedure, Year, and Place: hysterectomy - in the 1973 Hx Anesthesia Reactions: No Infectious Disease History: No Infectious Disease History: Denies: Traveled Outside the [place] in Last 30 Days - Family History Known Family History: Negative: Cardiac Disease, Hypertension, Diabetes - Social History Occupation: Retired Lives: With Family Alcohol Use: None Hx Substance Use: No Substance Use Type: Reports: None Hx Tobacco Use: No Smoking Status (MU): Never Smoked Tobacco Review of Systems Positive: Fatigue, Other - "Cold sweats". Negative: Fever Positive: Palpitations, Chest Pain - 1 week ago Positive: Other - Positive: Mid and lower back pain All Other Systems Reviewed And Are Negative: Yes Physical Exam - Summary Physical Exam Summary: Appearance: The patient is well-nourished in no acute distress and in no acute pain. Skin: The skin is warm and dry and skin color reflects adequate perfusion. HEENT: The head is normocephalic and atraumatic. The pupils are equal and reactive. The conjunctivae are clear and without drainage. Nares are patent and without drainage. Mouth reveals moist mucous membranes and the throat is without erythema and exudate. The external ears are intact. The ear canals are patent and without drainage. The tympanic membranes are intact. Neck: The neck is supple with full range of motion and non-tender. There are no carotid bruits. There is no neck vein distension. Respiratory: Chest is non-tender. Lungs are clear to auscultation and breath sounds are symmetrical and equal. Cardiovascular: Heart has an irregularly irregular rate . There is no murmur or rub auscultated. There is no peripheral edema and pulses are symmetrical and equal. Abdomen: The abdomen is soft and non-tender. There are normal bowel sounds heard in all four quadrants and there is no organomegaly palpated. Musculoskeletal: There is no back tenderness noted. Extremities are non-tender with full range of motion. There is good capillary refill. There is no peripheral edema or calf tenderness elicited. Neurological: Patient is alert and oriented to person, place and time. The patient has symmetrical motor strength in all four extremities. Cranial nerves are grossly intact. Deep tendon reflexes are symmetrical and equal in all four extremities. Psychiatric: The patient has an appropriate affect and does not exhibit any anxiety or depression. Triage Information Reviewed: Yes Vital Signs On Initial Exam: Initial Vitals Temp Pulse Resp BP Pulse Ox 98.2 F 82 18 109/56 96 06/25/18 07:57 06/25/18 07:57 06/25/18 07:57 06/25/18 07:57 06/25/18 07:57 Vital Signs Reviewed: Yes Diagnostics - Vital Signs Vital Signs Temp Pulse Resp BP Pulse Ox 06/25/18 07:57 98.2 F 82 18 109/56 96 - Laboratory Result Diagrams: 06/25/18 08:43 06/25/18 08:43 Lab Statement: Any lab studies that have been ordered have been reviewed, and results considered in the medical decision making process. - Radiology CXR Radiology Interpretation Completed By: Radiologist - IMPRESSION: COPD WITH STABLE MULTIFOCAL OPACIFICATION CONSISTENT WITH THE NODULARITY NOTED ON CT ON JUNE 09, 2018. The ED Physician has reviewed this radiology report and agrees with it. - EKG 0807 Cardiac Rate: NL - 87 bpm Ectopy: PACs - Has frequent PACs EKG Interpretation: Has RBBB 0942 Cardiac Rate: NL - 77 bpm Ectopy: PACs - Has frequent PACs EKG Interpretation: Has RBBB Chest Pain Course/Dx - Course Course Of Treatment: Ms. Gonzalez presented complaining of multiple episodes of not feeling well and feeling like her heart was racing and that she might faint. She has a history of atrial fib relation and was going in and out of atrial fibrillation with RVR on presentation. She denied chest pain or shortness of breath. She was initially started on Cardizem although I was able to break one of her episodes with carotid massage. From that point on she remained in sinus rhythm and eventually the Cardizem was weaned off and she was observed for longer. She continued to remain in normal sinus rhythm with a normal workup and was discharged for close follow-up. Her INR was noted to be 9 and it was recommended that she hold her Coumadin and follow up with her PCP on Wednesday. Additionally she was given 5 mg of by mouth vitamin K. - Diagnoses Provider Diagnoses: Near syncope, Atrial fibrillation with rapid ventricular response Discharge - Sign-Out/Discharge Documenting (check all that apply): Patient Departure - DC - Discharge Plan Condition: Stable Disposition: HOME Patient Education Materials: Syncope (ED) Referrals: Stephanie Shoemaker MD [Primary Care Provider] - 3 Days Additional Instructions: Return to ED for any new or worsening symptoms - Billing Disposition and Condition Condition: STABLE Disposition: Home
[2018-06-25] MEDS ORDERED: Diltiazem DRIP* 100 MG/100 ML ADDV.BAG IVPB ONE ×2 (08:24→08:35)
[2018-06-25] MEDS ORDERED: NS 0.9% 1000 ML* 1,000 ML IV ONE (08:35)
--- NOTE | 2018-06-25 09:01 | RAD ---
HISTORY: CP chest pain COMPARISONS: June 12, 2018, chest CT dated June 09, 2018 VIEWS: 1: frontal portable view of the chest at 8:40 AM FINDINGS: LINES AND TUBES: None. CARDIOMEDIASTINAL SILHOUETTE: The cardiomediastinal silhouette is normal for portable technique. PLEURA: The costophrenic angles are sharp. No pleural abnormalities are noted. LUNG PARENCHYMA: There is hyperinflation. There is multifocal opacification of the lungs bilaterally similar to the previous examination, corresponding to the nodular densities noted on CT. ABDOMEN: The upper abdomen is clear. There is no subphrenic gas. BONES AND SOFT TISSUES: Degenerative changes are noted. There is postsurgical change to the mandible IMPRESSION: COPD WITH STABLE MULTIFOCAL OPACIFICATION CONSISTENT WITH THE NODULARITY NOTED ON CT ON JUNE 09, 2018.
[2018-06-25 09:04] LABS: ABS Basophils 0.1 10^3/ul (0-0.2); ABS Eosinophils 0.1 10^3/ul (0-0.6); ABS Lymphocytes 0.8 10^3/ul (1.0-4.8); ABS Neutrophils 13.8 10^3/ul (1.5-7.7); ABS Nucleated RBC 0 10^3/ul; Eosinophil % 0.5 % (0-6); Hematocrit 35 % (35-47); Hemoglobin 11.3 g/dl (12.0-16.0); Lymphocyte % 5.2 % (25-47); Mean Corpuscular HGB Conc 32 g/dl (31-36); Mean Corpuscular Hemoglobin 26 pg (27-31); Mean Corpuscular Volume 80 fL (80-97); Nucleated Red Blood Cells % 0; Platelet Count 305 10^3/ul (150-450); Red Blood Count 4.39 10^6/ul (4.00-5.40); Red Cell Distribution Width 15 % (10.5-15); White Blood Count 15.8 10^3/ul (3.5-10.8)
[2018-06-25 09:10] LABS: EGFR Non-African American 90.2 (>60)
[2018-06-25 09:19] LABS: INR 9.16 (0.77-1.02)
[2018-06-25] MEDS ORDERED: KCL 10 MEQ/50 ML IVPREMIX* 10 MEQ/50 ML BAG IV ONE (09:53)
[2018-06-25] MEDS ORDERED: Phytonadione Oral Solution* 5 MG/25 ML UDC PO ONE (09:53)
[2018-06-25 14:17] VITALS: BP 160/87
== END 2018-06-25 14:18 | disposition home or self-care (01) ==
LOC: ED 07:51
DX: R55 Syncope and collapse (principal); I48.91 Unspecified atrial fibrillation; I45.10 Unspecified right bundle-branch block; J44.9 Chronic obstructive pulmonary disease, unspecified; Z79.01 Long term (current) use of anticoagulants; Z88.5 Allergy status to narcotic agent
CPT/HCPCS: 36415; 71045; 80053; 83605; 83880; 84443; 84484; 85025; 85610; 93005; 96365; 96375; 99285; J3480